=== PATIENT | female | born 1955 | race Caucasian/White ===

== ENCOUNTER → 2020-08-28 | Outpatient (CLI) | payer MEDICARE | END | disposition home or self-care (01) | LOC: CFH 10:32 | PROVIDERS: ATTEND Internal Medicine | DX: Z13.820 Encounter for screening for osteoporosis (principal); M81.0 Age-related osteoporosis without current pathological fracture; N95.9 Unspecified menopausal and perimenopausal disorder; Z68.1 Body mass index [BMI] 19.9 or less, adult | CPT/HCPCS: 77080 ==

== ENCOUNTER 2020-12-13 09:29 | Emergency (ER) | payer MEDICARE ==
[~2020-12-13] VITALS: Ht 167.6 cm; Wt 47.5 kg
[2020-12-13 09:32] VITALS: BP 134/73
--- NOTE | 2020-12-13 09:55 | NUR ---
PT. IS A & O X 4 WITH A [facility] OF 13 PRESENTING TO THE ED WITH C/O 4/10 NOSE PAIN AFTER FALLING AND HITTING THE SIDEWALK WITH HER FACE. PT. DENIES LOC. BLEEDING IS CONTROLLED. PT. DENIES DIZZINESS, NAUSEA OR SOB. PT. IS RESTING WITH THE SIDERAILS UP X [address] AND THE CALL LIGHT IN PLACE.
[2020-12-13] MEDS ORDERED: LIDOCAINE-MPF 1%, 5ML ONE (10:19)
[2020-12-13] MEDS ORDERED: HYDROcodone/APAP 5/325 TABLET ONE (10:20)
[2020-12-13] MEDS ORDERED: DIPH,PERTUSS(ACELL),TET VAC/PF 0.5 ML IM-VACC ONE ×2 (10:30→10:39)
[2020-12-13] MEDS ORDERED: LIDOCAINE-MPF 1%, 5ML INFIL ONE (10:30)
[2020-12-13] MEDS ORDERED: HYDROcodone/APAP 5/325 TABLET PO ONE (10:30)
[2020-12-13] MEDS ORDERED: INSULIN SINGLE DOSE, ER ONE (10:36)
[2020-12-13] MEDS ORDERED: BACITRACIN ZINC OINT 500U/GM, 0.9 GM ONE ×2 (10:47→11:19)
--- NOTE | 2020-12-13 11:30 | NUR ---
PT.'S WOUNDS WERE CLEANSED AND DRESSED WITH BACITRACIN AND GAUZE. PT. WAS SUTURED BY [facility]. TOLERATED WELL. PT'S CHIN LACERATION WAS IRRIGATED PRIOR TO SUTURING.
--- NOTE | 2020-12-13 11:47 | NUR ---
PT. WAS GIVEN DISCHARGE INSTRUCTIONS AND A SCRIPT. PT.'S WOUNDS ARE DRESSED. PT.'S VITALS ARE STABLE. PT. WAS GIVEN DISCHARGE INSTRUCTIONS AND A SCRIPT WITH UNDERSTANDING VERBALIZED ALONG WITH WILLINGNESS TO COMPLY. PT. WAS AMBULATORY TO THE DISCHARGE DESK. VSS.
== END 2020-12-13 11:58 | disposition home or self-care (01) ==
LOC: ED 09:35
DX: S01.81XA Laceration without foreign body of other part of head, initial encounter (principal); G20 Parkinson's disease; W01.0XXA Fall on same level from slipping, tripping and stumbling without subsequent striking against object, initial encounter; Y93.89 Activity, other specified; Y92.410 Unspecified street and highway as the place of occurrence of the external cause; Y99.8 Other external cause status
CPT/HCPCS: 12011; 70160; 80329; 90471; 90715; 99283; G0480; J1815

== ENCOUNTER 2020-12-18 10:40 | Emergency (ER) | payer MEDICARE, MEDICAID ==
[~2020-12-18] VITALS: Ht 167.6 cm; Wt 47.0 kg
[2020-12-18 10:47] VITALS: BP 112/59
--- NOTE | 2020-12-18 11:31 | NUR ---
Patient/Caregiver given discharge instructions and they have confirmed that they understand the instructions. Patient ambulatory with steady gait. NAD, all questions answered appropriately, denies additional needs at this time. No personal belongings left in room after discharge.
== END 2020-12-18 11:35 | disposition home or self-care (01) ==
LOC: ED 11:10
DX: S01.81XD Laceration without foreign body of other part of head, subsequent encounter (principal); G20 Parkinson's disease; X58.XXXD Exposure to other specified factors, subsequent encounter
CPT/HCPCS: 99281